=== PATIENT | female | born 1985 | race Caucasian/White ===

== ENCOUNTER 2020-02-18 04:51 | Inpatient (IN) | payer BC, SELFPAY ==
[2020-02-18] VITALS (104 sets, daily range): BP systolic 112–165; BP diastolic 63–112; PULSE 61–103; RESP 18; TEMP 36.5–37.3; O2SAT 98–100; BMI 37.5
[2020-02-18 05:20] LABS: Basophils Percent Auto 0.4 % (0.2-1.2); Eosinophils Absolute Auto 0.1 K/mm3 (0-0.3); Eosinophils Percent Auto 0.9 % (0-4.4); Hematocrit 30.6 % (37.0-47.0); Immature Granulocyte Absolute 0.08 K/mm3 (0.00-0.031); Immature Granulocyte Percent A 0.8 % (0-0.5); Lymphocytes Percent Auto 22.8 % (18.3-44.2); Mean Corpuscular HGB Conc 32.7 g/dl (32-36); Mean Corpuscular Hemoglobin 27.5 pg (26-34); Mean Corpuscular Volume 84.3 fl (80-100); Mean Platelet Volume 10.9 fl (7.4-10.4); Monocytes Absolute Auto 0.7 K/mm3 (0.1-0.6); Monocytes Percent Auto 6.8 % (2.6-8.5); Neutrophils Absolute Auto 6.6 K/mm3 (1.3-6.7); Neutrophils Percent Auto 68.3 % (45.5-73.1); Platelet Count Result 254 k/mm3 (150-375); Red Blood Count 3.63 M/mm3 (4.2-5.4); Red Cell Distribution Width 13.2 % (11.5-14.5); White Blood Count 9.7 K/mm3 (4.5-10.0)
[2020-02-18] MEDS: LACTATED RINGERS 1,000 ML 125 ML IV CONT ×2 (05:39→10:12)
[2020-02-18] MEDS: OXYTOCIN 30 UNITS/NS 500 ML 30 UNITS/500 ML BAG IV CONT (05:41)
--- NOTE | 2020-02-18 07:05 | WPDHPUPDATE1 ---
History and Physical Update Update Date/Time: 02/18/20 07:05 History and Physical has been reviewed, including an updated exam of the patient. There are NO changes in the patient's condition. Risks, benefits, and alternatives have been discussed and questions answered. Patient agrees to proceed with procedure.
--- NOTE | 2020-02-18 07:05 | WPDOBADMIT ---
Obstetrics - Admit Note Admission Note: record reviewed. No pertinent additions to the history and/or any subsequent changes in the physical findings that are not consistent with the expected course of the were found. Additions to the history and/or subsequent changes in the physical findings follow. None.
[2020-02-18 09:31] LABS: Rapid Plasma Reagin Non-Reactive (NonReactive)
--- NOTE | 2020-02-18 12:19 | P.PCNOB_ITS ---
OB - Delivery Note Procedure Route of delivery: Laceration description: Perineal - 2nd Degree Delivery repair: chromic Specimen: No Estimated blood loss (mL): 200 Anesthesia type: Epidural Disposition: floor Narrative: Patient prepped and draped in usual manner for this procedure. Maternal expulsive efforts shortly delivered vertex. Nuchal cord was noted x2 and readily reduced. Rest of the baby was delivered without difficulty cord was clamped and cut and baby was placed on maternal abdomen. Placenta delivered spontaneously. Cervix uterus vagina mobile inspected secondary midline laceration was noted. This was approximated using 2 0 chromic to approximate the vaginal tissue in a running interlocking manner subcuticular l best to approximate the perineal tissue. At this point seizure was considered terminated there was no significant bleeding uterus was well contracted there are no other lacerations or tears noted. [place] Baby Weeks of gestation at delivery: 39 Infant gender: Female Weight (pounds): 8 Weight (ounces): 2 score one minute: 8 score five minutes: 9
[2020-02-18] MEDS: OXYTOCIN 30 UNITS/NS 500 ML 30 UNITS/500 ML BAG 125 UNITS IV CONT (12:42)
[2020-02-18] MEDS: IBUPROFEN 600 MG TABLET PO ×2 (14:27→20:06)
[2020-02-18] MEDS: WITCH HAZEL 40 PADS 1 PAD TOPICAL (14:28)
[2020-02-18] MEDS: BENZOCAINE 20% AER SPR (*SP) 56 GM CAN 1 SPRAY TOPICAL (14:28)
[2020-02-19] MEDS: DOCUSATE SODIUM 100 MG CAPSULE PO (02:35)
[2020-02-19] MEDS: IBUPROFEN 600 MG TABLET PO ×2 (02:35→10:06)
--- NOTE | 2020-02-19 07:30 | PC.NURSE ---
PT introductions made and plan of care discussed per post , pain management, daily care activities and pending discharge to home. PT verbalized understanding of such care.
[2020-02-19 08:00] VITALS: BP 143/90; PULSE 83; RESP 18; TEMP 36.7; O2SAT 98
--- NOTE | 2020-02-19 09:37 | PM.OBDSVD ---
OB - DS: Summary OB Procedures : None OB Procedures Intrapartum: Spontaneous Vag Delivery OB Procedures: : None Time Spent with Patient Time attestation: Total time spent providing and/or coordinating discharge services: DS: Data Data Completed and Pending Labs on day of discharge: Labs from last 24 hours 02/19/20 04:42 Hgb 8.0 L Hct 25.0 L Discharge Plan Discharge Discharging Clinician: Jose Valdez Patient Disposition: Home, Self-Care Activity: as tolerated Diet: as tolerated Patient Instructions: Antibiotic Form Stand Alone Forms: General Discharge Information Follow-up/Referrals: Jose Valdez MD [Physician] - 3 Weeks Discharge Medications: Continued PNV [id number] fumarate-FA [] 28 mg iron- 800 mcg Tablet 1 tablet PO DAILY RF: 0 Date of admission: 02/18/20 04:51 Primary Care Provider: UNKNOWN,DOCTOR Admitting Provider: Jose Valdez Attending physician on admission: Jose Valdez
[2020-02-19] MEDS: POLYSACCHARIDE IRON COMPLEX 150 MG CAPSULE PO (10:06)
[2020-02-19] MEDS: MULTIVIT/MIN/PREN/FOL AC/IRON TABLET 1 TAB PO (10:06)
[2020-02-19 10:15] VITALS: PULSE 79; RESP 16; O2SAT 100
--- NOTE | 2020-02-19 10:30 | PC.NURSE ---
Consulted with patient, mother reports infant is sleepy and very gaggy today. has had several clear mucus spit ups. Discussed this is normal for a for the first day or two after delivery. Reviewed bulb syringe and process for a spiting up. Mother reports she had difficulties with latching with first child for several weeks, using a nipple shield then weaning off. Mother is concerned is not getting enough. Reviewed signs of adequate intake, is WNL at this time. Mother wishes for 24 hour discharge. Discussed staying another night for assist with feeding, if she is concerned. Assisted with infant feeding. Reviewed infant feeding cues, frequencies, duration of feedings, feeding elimination flow sheet, and signs of adequate intake. Demonstrated stimulation techniques to wake infant for feeding. Assisted with to breast. Reviewed positioning/alignment in cross cradle, holding breast in U hold and guided asymmetrical latch on. Discussed the rational for each. was sleepy and made no attempt to latch. Suggested skin to skin and attempt again in 30 min.
--- NOTE | 2020-02-19 11:10 | PC.NURSE ---
Mother called out to attempt to breast. Demonstrated stimulation techniques to wake for feeding. Assisted with infant to breast. Reviewed positioning/alignment in cross cradle, holding breast in U hold and guided asymmetrical latch on. was making eager attempts to latch and unable to maintain. Suggested nipple shield. Mother is very comfortable with shield use, first child nursed with a shield for several weeks before weaning. Nipple shield provided to mother due to for latch issues. Instructions given on application and cleaning of shield. Discussed nipple shield precautions and possible complications. Patient able to return demonstration on proper application of shield. Discussed the need to initiate pumping if infant continues to nurse with the shield. Patient verbalizes understanding. With shield in place was able to latch correctly. Infant nursed eagerly, with steady draws and frequent swallowing noted. Reviewed signs of a correct latch, effective nursing and suck swallow ratio. was able to maintain latch without discomfort to mother. Suggested mother stimulate infant to keep awake and nursing effectively for increased intake and assist with maintaining deep latch. Demonstrated how to adjust latch more deeply while feeding.
[2020-02-19 11:50] VITALS: BP 145/83; PULSE 79; RESP 16; TEMP 37.2; O2SAT 100
--- NOTE | 2020-02-19 14:50 | PC.NURSE ---
Mother called out for observation of feeding reporting was awake and rooting. Infant eagerly latched without nipple shield nursing eagerly with long draws and freq swallowing noted. Discussed to pump if she would nurse with nipple shield and reviewed supplementation if is not having required output and/or feedings. Mother states she has help once home her sister in law in a LC. Mother is feeding as required and waking to feed if needed. is currently meeting outcomes for weight, output, jaundice and feeding frequencies. Mother states she feels confident to continue effective at home. Reviewed transition to breast milk, signs of adequate intake, and engorgement/relief. Instructed to call ICP if intake/output less than required. Reviewed regular medications mother is taking. Information provided per Jyoti. Reviewed community resources on the [facility] website and in the [facility]Baby guide. Information on outpatient services provided. Mother has no further questions at this time.
--- NOTE | 2020-02-19 15:30 | PC.NURSE ---
PT received discharge instructions per protocol and verbalized understanding of such care.
--- NOTE | 2020-02-19 16:14 | PC.NURSE ---
PT discharged to home ambulatory accompanied by spouse and to waiting car. Follow up appts confirmed
[2020-02-20 09:59] VITALS: BP 118/82; PULSE 91; RESP 16; TEMP 37.1
== END 2020-02-19 16:14 | disposition home or self-care (01) | DRG 807 ==
LOC: ANHLDR 04:57 → ANHOB2 16:02
PROVIDERS: Admitting Provider Obstetrics & Gynecology; Visit Provider Obstetrics & Gynecology
DX: O69.81X0 Labor and delivery complicated by cord around neck, without compression, not applicable or unspecified (principal); Z37.0 Single live birth; Z3A.39 39 weeks gestation of pregnancy; O70.1 Second degree perineal laceration during delivery
CPT/HCPCS: 36415; 85014; 85018; 85025; 86592; 86850; 86900; 86901; A9270; J2590; J2795; J7120

== ENCOUNTER 2023-06-11 08:29 | Outpatient (CLI) | payer BC, SELFPAY ==
--- NOTE | ~2023-06-11 | CT_ITS ---
EXAMINATION: CT abdomen pelvis wo/w con DATE: 06/11/2023 09:17 INDICATION: Microscopic hematuria TECHNIQUE: Computed tomography (CT) of the abdomen and pelvis was performed without and subsequently with 130 CC Omnipaque 350 intravenous contrast. Automated exposure control and iterative reconstructi on technique were employed. Exam dose: 2213.57 mGy-cm total exam DLP. COMPARISON: 05/09/2018 CT abdomen pelvis FINDINGS: The lung bases are clear. Normal heart size. No pericardial or pleural effusion. Small sliding hiatal hernia. The liver, spleen, pancreas, and adrenal glands and bile ducts and pancreatic duct are unremarkable. 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 One or 2 possible very subtle pinpoint nonobstructing left renal calculi. No other urinary tract calc ulus is noted. 11 mm upper pole left renal cyst. No other renal space occupying mass lesion is detected. No ureteral calculus or hydroureteronephrosis on either side. The urinary bladder is unremarkable. Retroverted uterus. Approximately 1.5 cm right ovarian cyst and 2.3 cm right ovarian cyst are suggest ed. Normal caliber of the abdominal aorta. No intraperitoneal or retroperitoneal or pelvic mass lesion or adenopathy or ascites is noted otherwise. No bowel obstruction, bowel wall thickening, pneumatosis or intraperitoneal free air is detected. No suspicious osteolytic or osteoblastic lesions are noted. IMPRESSION: Duplicated right kidney 11 mm upper pole left renal cyst One or two possible very subtle pinpoint nonobstructing left renal calculi No ureteral calculus or hydroureteronephrosis Retroverted uterus Probable bilateral ovarian cysts Small sliding hiatal hernia Reviewed, dictated and finalized at [facility]. Reviewed, dictated and finalized at [facility].
== END 2023-06-11 08:30 | disposition home or self-care (01) ==
PROVIDERS: PCP Family Medicine; Visit Provider Urology
DX: R31.29 Other microscopic hematuria (principal); N28.1 Cyst of kidney, acquired; N83.201 Unspecified ovarian cyst, right side; N83.202 Unspecified ovarian cyst, left side; K44.9 Diaphragmatic hernia without obstruction or gangrene
CPT/HCPCS: 74178; Q9967